=== PATIENT | male | born 1975 | race Caucasian/White ===

== ENCOUNTER 2018-12-08 12:54 | Emergency (ER) | payer OTHER ==
[~2018-12-08] VITALS: Wt 129.5 kg
[2018-12-08 13:03] VITALS: BP 145/88; PULSE 78; RESP 20
[2018-12-08] MEDS ORDERED: KETOROLAC 60 MG INJ IM STA (13:44)
[2018-12-08] MEDS ORDERED: traMADol 50 MG TAB PO ONE (14:00)
[2018-12-08] MEDS ORDERED: NAPR-985 PO (14:54)
--- NOTE | 2018-12-08 15:23 | ERD ---
ER Documentation Chief Complaint Chief Complaint r. heel pain, denies trauma HPI History of Present Illness: 43-year-old male coming in today with complaint of right heel pain medicine present for a few months. Patient reports increasing pain last night. Patient denies injury or trauma. Patient reports seeing [facility] doctor for the same complaint in which no interventions were done; Patient is concerned and is requesting x-ray due to history of diabetes. At home pharmacological/nonpharmacological treatment for symptoms: Denies Denies social concerns; Denies recent foreign travel ROS All systems reviewed and are negative except as per history of present illness. Medications Home Meds Active Scripts Naproxen* (Naprosyn*) 500 Mg Tablet, 500 MG PO BID PRN for PAIN AND/OR INFLAMMATION, #30 TAB Prov:JACKSONCHANG NP 12/08/18 Allergies Allergies: Coded Allergies: No Known Allergy (Unverified , 12/08/18) PMhx/Soc History of Surgery: Yes (APPENDECTOMY) Anesthesia Reaction: No Hx Respiratory Disorders: Yes (ASTHMA) Hx Alcohol Use: Yes (OCCASIONAL) Hx Substance Use: No Hx Tobacco Use: No Smoking Status: Never smoker FmHx Family History: diabetes Physical Exam Vitals Vital Signs Date Temp Pulse Resp B/P (MAP) Pulse Ox O2 O2 Flow FiO2 Time Delivery Rate 12/08/18 97.6 78 20 145/88 99 13:03 (107) Physical Exam Const: No acute distress Head: Atraumatic Eyes: Normal Conjunctiva ENT: Normal External Ears, Nose and Mouth. Neck: Full range of motion. No meningismus. Resp: Clear to auscultation bilaterally Cardio: Regular rate and rhythm, no murmurs Abd: Soft, non tender, non distended. Normal bowel sounds Skin: No petechiae or rashes Back: No midline or flank tenderness Ext: No cyanosis, or edema. 2+ pedal pulses bilaterally. Tenderness to palpation over right heel. No breaks in skin, no infection noted, no erythema, no warmth. Neur: Awake and alert Psych: Normal Mood and Affect Results 24 hrs Current Medications Medications Dose Sig/Cresencio Start Time Status Last (Trade) Ordered Route PRN Stop Time Admin Dose Reason Admin Ketorolac 60 mg ONCE STAT 12/08/18 DC 12/08/18 Tromethamine IM 13:44 13:58 (Toradol) 12/08/18 13:46 Tramadol 50 mg ONCE ONCE 12/08/18 DC 12/08/18 HCl PO 14:00 13:57 (Ultram) 12/08/18 14:01 Procedures/MDM ED course includes a thorough examination and history. Medications: Ketorolac, tramadol Imaging: Right foot x-ray Labs: -- Low suspicion for life-threatening medical emergency. Otherwise healthy patient presenting with constellation of symptoms likely representing uncomplicated [x] as characterized by history, physical exam findings, radiology findings. Right foot x-ray revealing: IMPRESSION: 1. Calcaneal spurring seen at both the insertion of the plantar aponeurosis and Achilles tendon. 2. Otherwise, unremarkable right foot series. R Gerardo Physician No respiratory distress, otherwise relatively well appearing and nontoxic. Patient educated on diagnoses, prescriptions, follow-up care, return precautions. Strict return precautions given for worsening condition; questions answered discharge. Disposition for discharge with followup in 2 days with PCP/clinic for further evaluation and referral to tool and die technician as needed. Departure Diagnosis: Primary Impression: Calcaneal spur, right Condition: Stable Patient Instructions: Foot Surgery: Bone Spurs, Heel Spur Referrals: [facility] YOU HAVE RECEIVED A MEDICAL SCREENING EXAM AND THE RESULTS INDICATE THAT YOU DO NOT HAVE A CONDITION THAT REQUIRES URGENT TREATMENT IN THE EMERGENCY DEPARTMENT. FURTHER EVALUATION AND TREATMENT OF YOUR CONDITION CAN WAIT UNTIL YOU ARE SEEN IN YOUR DOCTORS OFFICE WITHIN THE NEXT 1-2 DAYS. IT IS YOUR RESPONSIBILITY TO MAKE AN APPOINTMENT FOR FOLOW-UP CARE. IF YOU HAVE A PRIMARY DOCTOR --you should call your primary doctor and schedule an appointment IF YOU DO NOT HAVE A PRIMARY DOCTOR YOU CAN CALL OUR PHYSICIAN REFERRAL HOTLINE AT IF YOU CAN NOT AFFORD TO SEE A PHYSICIAN YOU CAN CHOSE FROM THE FOLLOWING [facility] [address] [facility] [address] [facility] [address] [facility] [address] [facility] [facility] [address] [facility]. [facility] [address] [facility]. [facility] YOU HAVE RECEIVED A MEDICAL SCREENING EXAM AND THE RESULTS INDICATE THAT YOU DO NOT HAVE A CONDITION THAT REQUIRES URGENT TREATMENT IN THE EMERGENCY DEPARTMENT. FURTHER EVALUATION AND TREATMENT OF YOUR CONDITION CAN WAIT UNTIL YOU ARE SEEN IN YOUR DOCTORS OFFICE WITHIN THE NEXT 1-2 DAYS. IT IS YOUR RESPONSIBILITY TO MAKE AN APPOINTMENT FOR FOLOW-UP CARE. IF YOU HAVE A PRIMARY DOCTOR --you should call your primary doctor and schedule and appointment IF YOU DO NOT HAVE A PRIMARY DOCTOR YOU CAN CALL OUR PHYSICIAN REFERRAL HOTLINE AT . IF YOU CAN NOT AFFORD TO SEE A PHYSICIAN YOU CAN CHOSE FROM THE FOLLOWING [facility] INSTITUTIONS: [facility] [address] [place] [address] [facility] [address] [place] [address] [facility] [address] [place] [address] Additional Instructions: Thank you very much for allowing us to participate in your care. Your health and safety is our top priority at [facility]. It is important to read all discharge instructions and education provided in your discharge packet. Call your primary care doctor TOMORROW for an appointment during the next 2-4 days and bring all the information and medications prescribed. Have prescriptions filled and follow precisely the directions on the label. -Naproxen is a anti-inflammatory/pain medication; take this medication daily as prescribed for the next week to help with swelling/inflammation/pain. If the symptoms get worse and your provider is unavailable, return to the Emergency Department immediately. CHANG JACKSON NP Dec 08, 2018 15:23
== END 2018-12-08 15:12 | disposition home or self-care (01) ==
LOC: FTE 12:54
DX: M77.31 Calcaneal spur, right foot (principal); E11.9 Type 2 diabetes mellitus without complications; J45.909 Unspecified asthma, uncomplicated
CPT/HCPCS: 73630; J1885; Z7610; 96372